=== PATIENT | male | born 1980 | race Two or more races ===

== ENCOUNTER 2025-11-08 09:00 | Outpatient (RCR) | payer MEDICAID, SELFPAY ==
--- NOTE | 2025-10-23 10:06 | PT.OIERPT ---
PT OP Initial Eval Patient Information Outpatient Physical Therapy Treatment Date: 10/23/25 Visit Reasons: LEFT SHOULDER PAIN Medical Diagnosis: M25.512 Treatment Dx #1: L shoulder pain Start of Care: 10/23/25 Date of Onset: 10 yrs ago Smoking Status Smoking Status: Never smoker Initial Assessment Subjective: Pt is 44 yr old male who c/o L shoulder pain x10 yrs when he fell through a roof and dislocated it. Since then it hurts to lift things, reach OH and sleeping on that side. PMH: HTN Imaging: Xrays 10 yrs ago Pt goal: strengthen the shoulder so the pain is less Objective: L shoulder AROM: FF: 95 deg with pain Abd: 120 deg with pain ER: 80 deg HBB: L5 Morales's: positive Empty can: positive TTP: moderate of long head of biceps tendon Assessment: Pt presentation consistent with SLAP tear/irritation with pain referred down the biceps tendon and positive labral testing. Pt may benefit from skilled therapy but has poor/fair rehab potential due to chronicity since injury. PT recommends further diagnostic imaging of L shoulder such as MRI. Short Term and Cardboard Cutter Goals 1. Ind with HEP ? 2. Improved AROM of L shoulder to at least 135 deg FF, 125 deg abduction and 90 deg ? ER ? 3. Improved HBB ROM to L3 ? 4. Pt will reach OH x10 with <=4/10 pain Treatment Plan ? 1. Manual therapy ? 2. Therex ? 3. Modalities as indicated, moist heat, ice, estim Frequency and Duration: 1-2x a week for 4 trial visits. If progressing continue to 12 visits. Certification Dates: 10/23/25 to 01/21/25 Procedure Charges OP PT Eval Mod Complex 30 minutes: Yes
--- NOTE | 2025-10-30 18:24 | PT.ODAYNRPT ---
PT Outpatient Daily Note OP Daily Note Outpatient Physical Therapy Treatment Date: 10/30/25 Visit Reasons: LEFT SHOULDER PAIN Subjective: Same as time of evaluation Objective: See F/S for therex Assessment: Low pain of L shoulder with AAROM therex Plan: Continue per POC Length of Time (minutes) of Treatment: 30 Minutes Procedure Charges Therapeutic Exercise 30 minutes: Yes
--- NOTE | 2025-11-08 09:38 | PT.ODAYNRPT ---
PT Outpatient Daily Note OP Daily Note Outpatient Physical Therapy Treatment Date: 11/08/25 Visit Reasons: LEFT SHOULDER PAIN Subjective: Pt c/o pain pointing at bicep region. Objective: See F/S for therex Assessment: Progression of intervention completed with muscle fatigue and minimal pain. Plan: Continue per POC, assess response to treatment. Length of Time (minutes) of Treatment: 30 Minutes Procedure Charges Therapeutic Exercise 30 minutes: Yes
== END 2025-11-08 23:59 | disposition home or self-care (01) ==
LOC: CPTX 09:00
DX: M25.512 Pain in left shoulder (principal); I10 Essential (primary) hypertension
CPT/HCPCS: 97110; 97162